=== PATIENT | female | born 1990 | race Caucasian/White ===

== ENCOUNTER 2016-06-26 06:20 | Inpatient (IN) | payer OTHER ==
[~2016-06-26] VITALS: Ht 149.9 cm; Wt 77.1 kg
[~2016-06-26 06:20] MED LIST: FAMOTIDINE20 M1 PO; NITROFURANTOIN100 M5 PO; PRENATAL TABLE1 EAC2 PO; PROMETHAZINE12.5 M2 PO; ZOFRAN ODT4 M1 SL
[2016-06-26 07:46] LABS: ABSOLUTE BASOPHIL COUNT 0 /CUMM (0.0-0.2); ABSOLUTE EOSINOPHIL COUNT 0.2 /CUMM (0.0-0.7); ABSOLUTE LYMPH COUNT 1.8 /CUMM (1.2-3.4); ABSOLUTE MONOCYTE COUNT 1.4 /CUMM (0.10-0.60); BASOPHIL % 0.2 % (0.0-2.0); EOSINOPHIL % 1.4 % (0-5); GRANULOCYTE % 70.2 % (42.2-75.2); HEMATOCRIT 31.8 % (37-47); MEAN CORPUSCULAR HGB 25.8 PG (27.0-31.0); MEAN CORPUSCULAR VOLUME 78.4 FL (81.0-99.0); MEAN PLATELET VOLUME 8.9 FL (7.4-10.4); PLATELET COUNT 199 /CUMM (130-400); RBC DISTRIBUTION WIDTH 15.1 % (11.5-14.5); RED BLOOD CELL CT 4.06 /CUMM (4.20-5.40); WHITE BLOOD CELL COUNT 11.4 /CUMM (4.8-10.8)
--- NOTE | 2016-06-26 11:11 | History & Physical ---
General Information and HPI MD Statement: I have seen and personally examined CARLOSAGUILA Kevin and documented this H&P. The patient is a 26 year old female at 39[] weeks and [] days gestation who presented with a chief complaint of []. srom and contractions History of Present Illness: 26-year-old 1 para 0 at 89 weeks gestation presents to childbirth center complaining of rupture membranes patient is 1 cm estimated weight is 9 pounds patient is for feet 11 I discussed shoulder dystocia risks with the patient risks of chorioamnionitis patient wants a trial of labor despite risks Allergies/Medications Allergies: Coded Allergies: Sulfa (Sulfonamide Antibiotics) (Mild, RASH 11/03/15) diphenhydramine (From BENADRYL) (N/V 11/03/15) Home Med list Famotidine 20 MG TABLET 20 MG PO BID GERD Nitrofurantoin Macrocrystal (Nitrofurantoin) 100 MG CAPSULE 1 CAP PO DAILY UTI (Reported) Ondansetron (Zofran Odt) 4 MG TAB.RAPDIS 1 TAB SL TID NAUSEA (Reported) Vit No.130/Iron/FA ( Tablet) 1 EACH TABLET 1 TAB PO DAILY (Reported) Promethazine HCl 12.5 MG TABLET 1-2 TAB PO Q6-8 PRN NAUSEA/VOMITING 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 Fields,in [place], [place], including EGD/colonoscopy & PillCam- reportedly "negative except IBS". 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 Age 56. FATHER (healthy). Age 57. Psychosocial History Who Do You Live With? spouse Primary Language: [place]er Living Will? no Power of Park Aide/HCP? no Review of Systems Review of Systems: -13 point review of systems as stated in the HPI Exam & Diagnostic Data Obstetric Exam Wgt Gained During : 41 pounds Pelvimetry: Untested Dilation (cm): 1 Effacement (%): 50 Station: 1 Membranes: SROM Fluid: clear Fundal Height (cm): 40 Multiple Gestation? No Contractions: To 6-7 minutes Patient for Induction? No Labs Blood Type & Rh: Positiveo Antibody Screen: Negative Hct/Hgb & Platelets #1: for Hct/Hgb & Platelets #2: Rubella: immune VDRL #1: Nonreactive VDRL #2: Nonreactive HbsAg: Negative HIV #1: Negative HIV #2 Negative 1 Hr P 3 Hr PG: Normal Group B Strep: Negative Initial Ultrasound: Negative Anatomy Ultrasound: Negative Genetic Testing: Normal Last 24 Hrs of Labs/Yfn: Laboratory Tests 06/26/16 0742: Urinalysis LIGHT H, Urine Color YEL, Urine Clarity HAZY H, Urine pH 6.0, Ur Specific [place] 1.020, Urine Protein NEG, Urine Ketones NEG, Urine Nitrite NEG, Urine Bilirubin NEG, Urine Urobilinogen 0.2, Ur Leukocyte Esterase NEG, Ur Microscopic SEDIMENT EXAMINED, Urine WBC 1-3 H, Ur Epithelial Cells MOD H, Urine Mucus FEW, Urine Hemoglobin TRACE-LYSED, Urine Glucose NEG 06/26/16 0713: CBC w Diff NO MAN DIFF REQ, RBC 4.06 L, MCV 78.4 L, MCH 25.8 L, RDW 15.1 H, MPV 8.9, Gran % 70.2, Lymphocytes % 15.6 L, Monocytes % 12.6 H, Eosinophils % 1.4, Basophils % 0.2, Absolute Granulocytes 8.0 H, Absolute Lymphocytes 1.8, Absolute Monocytes 1.4 H, Absolute Eosinophils 0.2, Absolute Basophils 0, PUBS MCHC 33.0 Assessment/Plan As Ranked By This Provider Problem List: 1. Core Measures/Miscellaneous Venous Thromboembolism VTE Risk Factors: / VTE Contraindications: No Contraindications VTE Prophylaxis Ordered Inpt: Mech & Pharm VTE Diagnosis: No Beta Izzy Is Beta Izzy a Home Med? No Antibiotics Is Patient on Antibiotics? No
--- NOTE | 2016-06-26 19:30 | Labor & Delivery Summary ---
Delivery Summary Vaginal Delivery: Vaginal: vertex : : vacuum Station/Position at [place]: AISHA CARDIA TO 80 WITH SINGLE APPLICATION OF VACUUM INFANT DIRECT OP Episiotomy/Lacerations: Type: RIGHT MEDIOLATERAL REPAIRED WITH 30 Placenta: Placenta: spontanteous, normal, 3 vessel, nuchal cord (x_) (ONE) Anesthesia: block Additional Comments: REDUCIBLE CORD .
[2016-06-27 08:28] LABS: ABSOLUTE EOSINOPHIL COUNT 0 /CUMM (0.0-0.7); EOSINOPHIL % 0.2 % (0-5); MEAN CORPUSCULAR HGB CONC 32.7 G/DL (33.0-37.0); RBC DISTRIBUTION WIDTH 15.6 % (11.5-14.5)
[2016-06-27 08:38] LABS: ABSOLUTE BASOPHIL COUNT 0 /CUMM (0.0-0.2); ABSOLUTE GRANULOCYTE CT 13.5 /CUMM (1.4-6.5); ABSOLUTE LYMPH COUNT 1.9 /CUMM (1.2-3.4); ABSOLUTE MONOCYTE COUNT 2.4 /CUMM (0.10-0.60); BASOPHIL % 0 % (0.0-2.0); GRANULOCYTE % 75.5 % (42.2-75.2); MEAN CORPUSCULAR HGB 25.4 PG (27.0-31.0); MEAN CORPUSCULAR VOLUME 77.5 FL (81.0-99.0); MEAN PLATELET VOLUME 8.8 FL (7.4-10.4); PLATELET COUNT 207 /CUMM (130-400); RED BLOOD CELL CT 3.45 /CUMM (4.20-5.40)
[2016-06-27 08:39] LABS: HEMATOCRIT 26.8 % (37-47); WHITE BLOOD CELL COUNT 17.9 /CUMM (4.8-10.8)
--- NOTE | 2016-06-27 18:11 | PN- Post Delivery/GYN ---
Subjective Subjective: MODERATE SWELLING Review of Systems: NEG Objective Last 24 Hrs of Vital Signs/I&O VSS AFEBRILE Physical Exam: FF PERINEUM INTACT EXT NT Assessment/Plan Assessment/Plan S/P PPD1 STABLE CIRC DISCHARGE IN AM Problem List: 1.
[2016-06-27] MEDS ORDERED: IBUPROFEN800 M1 PO (18:13)
[2016-06-27] MEDS ORDERED: DOCUSATE SODIU100 M3 PO (18:13)
[2016-06-28] MEDS ORDERED: PERCOCET 5-3251 EACH PO (08:31)
== END 2016-06-28 11:45 | DRG 775 ==
LOC: CBCO 06:20 → GNO 07:07
PROVIDERS: Specialist; ADMIT Obstetrics & Gynecology
PROC: 0HQ9XZZ Repair Perineum Skin, External Approach (ICD-10-PCS; principal; 2016-06-26)
PROC: 10D07Z6 Extraction of Products of Conception, Vacuum, Via Natural or Artificial Opening (ICD-10-PCS; principal; 2016-06-26)
DX: O69.81X0 Labor and delivery complicated by cord around neck, without compression, not applicable or unspecified (principal); O76 Abnormality in fetal heart rate and rhythm complicating labor and delivery; O70.9 Perineal laceration during delivery, unspecified; Z3A.40 40 weeks gestation of pregnancy; Z37.0 Single live birth
CPT/HCPCS: GNOS; 81001; 84112; G0463; J0290; J1170; J7120

== ENCOUNTER → 2016-07-06 | Day surgery (SDC) | payer OTHER ==
[~2016-07-06] VITALS: Ht 149.9 cm; Wt 68.0 kg
[~2016-07-06] MED LIST changes: +DOCUSATE SODIU100 M3 PO; +IBUPROFEN800 M1 PO; +PERCOCET 5-3251 EACH PO
--- NOTE | 2016-07-06 12:39 | History & Physical Pre-Op ---
General Information and HPI History of Present Illness: 26-year-old 1 status post normal vaginal delivery over right mediolateral episiotomy presented to office this week with breakdown of right mediolateral episiotomy and increased perineal pain. She is admitted today for repair of episiotomy breakdown. Allergies/Medications Allergies: Coded Allergies: Sulfa (Sulfonamide Antibiotics) (Mild, RASH 11/03/15) diphenhydramine (From BENADRYL) (N/V 11/03/15) Home Med list Docusate Sodium 100 MG CAPSULE 100 MG PO BID PRN STOOL SOFTENER Famotidine 20 MG TABLET 20 MG PO BID GERD Nitrofurantoin Macrocrystal (Nitrofurantoin) 100 MG CAPSULE 1 CAP PO DAILY UTI (Reported) Ondansetron (Zofran Odt) 4 MG TAB.RAPDIS 1 TAB SL TID NAUSEA (Reported) Oxycodone HCl/Acetaminophen (Percocet 5-325 MG Tablet) 5 MG-325 MG TABLET 1 TAB PO Q3P PRN PAIN SCALE 7-10 (SEVERE) Vit No.130/Iron/FA ( Tablet) 1 EACH TABLET 1 TAB PO DAILY (Reported) Past History Medical History Neurological: migraine EENT: NONE Cardiovascular: syncope (2013- [place], [place]) Respiratory: NONE Gastrointestinal: irritable bowel syndrome, 2012- GI w/u by Dr. Fields,in [place], [place], including EGD/colonoscopy & PillCam- reportedly "negative except IBS". 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 Age 56. FATHER (healthy). Age 57. Psychosocial History Who Do You Live With? spouse Services at Home None Primary Language: Stateless Living Will? no Power of Physician Underwriter/HCP? no Functional Ability ADLs Independent: dressing, eating, toileting, bathing. Ambulation: independent IADLs Independent: shopping, housework, finances, food prep, telephone, transportation , medication admin. Review of Systems Review of Systems Constitutional: Reports: no symptoms. EENTM: Reports: no symptoms. Cardiovascular: Reports: no symptoms. Respiratory: Reports: no symptoms. GI: Reports: no symptoms. Genitourinary: Reports: see HPI. Musculoskeletal: Reports: no symptoms. Skin: Reports: no symptoms. Neurological/Psychological: Reports: no symptoms. Hematologic/Endocrine: Reports: no symptoms. Immunologic/Allergic: Reports: no symptoms. All Other Systems: Reviewed and Negative Exam & Diagnostic Data Last 24 Hrs of Vital Signs/I&O Intake & Output 07/06 1600 07/06 0800 07/06 0000 Intake Total Output Total Balance Patient 150 lb Weight Physical Exam: HEENT: Normocephalic atraumatic Chest: Clear to auscultation bilaterally Cardiovascular: Normal S1-S2 Abdomen: Soft fundus firm Pelvic: Episiotomy incision open no drainage or bleeding Extremities: No clubbing cyanosis or edema Assessment/Plan Assessment/Plan: The episiotomy breakdown Plan: Repair of episiotomy As Ranked By This Provider Problem List: 1. episiotomy dehiscence
--- NOTE | 2016-07-18 09:43 | Operative Report ---
Operative/Inv Procedure Report Surgery Date: 07/06/16 Name of Procedure: Repair of episiotomy dehiscence Pre-Operative Diagnosis: Episiotomy dehiscence Post-Operative Diagnosis: Same Estimated Blood Loss: scant Surgeon/Fare Register Repairer: SHIV GONZALEZ MD Anesthesia: local monitored anesthesi Operative/Procedure Note Note: The patient was brought to the operating room placed on the OR table in the dorsal supine position. She was given adequate anesthesia and repositioned in modified dorsal lithotomy. She was prepped and draped in usual sterile fashion. Examination under anesthesia revealed an open the episiotomy. To me were injected with 1% lidocaine with epinephrine. The old sutures were taken out and the episiotomy was opened further. Tissue on both sides was excised to freshen up both ends of the wounds. Deep interrupted sutures were placed and the episiotomy was repaired in layers. A subcuticular stitch finished off the episiotomy repair the patient was then awakened and sent to recovery in good condition. All needle, sponge, and is recalcitrant correct at the end of the procedure 2.
== END ==
LOC: STS 01:17
DX: O90.1 Disruption of perineal obstetric wound (principal)
CPT/HCPCS: 81025; 88305; J0131; J0690; J1100; J1885; J2250; J2405